=== PATIENT | male | born 1975 | race Caucasian/White ===

== ENCOUNTER 2019-10-28 10:10 | Emergency (ER) | payer BC ==
[~2019-10-28] VITALS: Ht 182.8 cm; Wt 63.5 kg
[2019-10-28] MEDS ORDERED: SUBOXONE 8 MG-1 EACH SL (10:13)
[2019-10-28 10:36] LABS: BASO # 0.1 10*3/uL (0.0-0.1); BASO % 0.5 % (0.0-1.0); EOS # 0.1 10*3/uL (0.0-0.4); EOS % 0.9 % (1.0-4.0); HEMOGLOBIN 16.7 g/dl (14.0-18.0); LYMPH % 18.1 % (27.0-41.0); MEAN CELL VOLUME 106.9 fl (80.0-94.0); MEAN CORPUSCULAR HGB 37.2 pg (27.0-31.0); MEAN CORPUSCULAR HGB CONC 34.8 g/dl (33.0-37.0); MEAN PLATELET VOLUME 8.9 fl (9.6-12.3); MONO # 0.9 10*3/uL (0.1-1.0); MONO % 7.6 % (3.0-9.0); NEUT # 8.1 10*3/uL (2.3-7.9); NEUT % 72.5 % (47.0-73.0); PLATELET COUNT AUTOMATED 308 10*3/uL (130-400); RED BLOOD COUNT 4.49 10*6/uL (4.50-5.90); WHITE BLOOD COUNT 11.2 10*3/uL (4.8-10.8)
[2019-10-28 10:46] LABS: ACT PARTIAL THROMBO TIME 24.8 SECONDS (20.0-32.1); INTERNATIONAL NORM RATIO 0.9 (2.0-3.5)
[2019-10-28 10:52] LABS: ALBUMIN 4.2 gm/dl (3.1-4.5); ALKALINE PHOSPHATASE 124 U/L (45-117); BUN 5 mg/dl (7-24); CHLORIDE 108 mmol/L (98-107); CPK 53 U/L (39-308); CREATININE 0.83 mg/dL (0.70-1.30); POTASSIUM 4.2 mmol/L (3.5-5.1); SGOT/AST 45 IU/L (3-35); SGPT/ALT 63 U/L (12-78); SODIUM 142 mmol/L (136-145); TOTAL PROTEIN 8.1 gm/dL (6.4-8.2)
[2019-10-28 10:54] LABS: TROPONIN I < 0.015 ng/ml (<0.045)
== END 2019-10-28 14:28 | disposition home or self-care (01) ==
LOC: ED 10:10
PROVIDERS: Emergency Medicine
DX: T40.601A Poisoning by unspecified narcotics, accidental (unintentional), initial encounter (principal); R06.02 Shortness of breath; Z04.1 Encounter for examination and observation following transport accident; G89.29 Other chronic pain; F17.210 Nicotine dependence, cigarettes, uncomplicated; V47.5XXA Car driver injured in collision with fixed or stationary object in traffic accident, initial encounter; Y93.I9 Activity, other involving external motion; Y92.488 Other paved roadways as the place of occurrence of the external cause; Y99.8 Other external cause status

== ENCOUNTER → 2023-03-31 | Outpatient (CLI) | payer OTHER ==
[~2023-03-31] MED LIST: SUBOXONE 8 MG-1 EACH SL
[2023-03-31 13:34] LABS: BASO % 0.6 % (0.0-1.0); EOS # 0.1 10*3/uL (0.0-0.4); EOS % 1.5 % (1.0-4.0); HEMATOCRIT 48.9 % (42.0-52.0); LYMPH # 2.3 10*3/uL (1.3-4.4); LYMPH % 35.1 % (27.0-41.0); MEAN CELL VOLUME 106.1 fl (80.0-94.0); MEAN CORPUSCULAR HGB 36.9 pg (27.0-31.0); MEAN CORPUSCULAR HGB CONC 34.8 g/dl (33.0-37.0); MEAN PLATELET VOLUME 9.3 fl (9.6-12.3); MONO # 0.9 10*3/uL (0.1-1.0); NEUT # 3.3 10*3/uL (2.3-7.9); NEUT % 49.6 % (47.0-73.0); PLATELET COUNT AUTOMATED 258 10*3/uL (130-400); RED BLOOD COUNT 4.61 10*6/uL (4.50-5.90); RED CELL DISTRI WIDTH 13.9 % (0-14.5); WHITE BLOOD COUNT 6.6 10*3/uL (4.8-10.8)
[2023-03-31 14:26] LABS: ALKALINE PHOSPHATASE 89 U/L (46-116); BUN 6 mg/dl (9-23); CHLORIDE 105 mmol/L (98-107); POTASSIUM 4.2 mmol/L (3.4-5.1); SGPT/ALT 17 U/L (10-49); TOTAL PROTEIN 7.3 gm/dL (6.0-8.0)
== END | disposition home or self-care (01) ==
LOC: LAB 12:43
PROVIDERS: Physical Therapist; ATTEND Family Medicine
DX: M51.26 Other intervertebral disc displacement, lumbar region (principal); M48.061 Spinal stenosis, lumbar region without neurogenic claudication; F10.10 Alcohol abuse, uncomplicated; R53.83 Other fatigue; R20.0 Anesthesia of skin; R73.9 Hyperglycemia, unspecified

== ENCOUNTER → 2024-02-12 | Outpatient (CLI) | payer OTHER ==
[2024-02-12 15:55] LABS: HEMATOCRIT 37.1 % (42.0-52.0); MEAN CELL VOLUME 119.3 fl (80.0-94.0); MEAN CORPUSCULAR HGB 41.5 pg (27.0-31.0); MEAN CORPUSCULAR HGB CONC 34.8 g/dl (33.0-37.0); MEAN PLATELET VOLUME 9.8 fl (9.6-12.3); NUCLEATED RED BLOOD CELL 0.1 10*3/uL (0.0-0.0); NUCLEATED RED BLOOD CELL 0.9 % (0.0-0.0); PLATELET COUNT AUTOMATED 265 10*3/uL (130-400); RED BLOOD COUNT 3.11 10*6/uL (4.50-5.90); RED CELL DISTRI WIDTH 17.7 % (0-14.5); WHITE BLOOD COUNT 6.7 10*3/uL (4.8-10.8)
[2024-02-12 15:56] LABS: MANUAL DIFF REFLEX YES
[2024-02-12 16:19] LABS: ATYPICAL LYMPHS 1 % (0-0); BASOPHILS 1 % (0-1); PLATELET SUFFICIENCY NORMAL (NORMAL); TARGET CELLS FEW; TOTAL CELLS COUNTED 100 #CELLS
[2024-02-12 16:20] LABS: SPHEROCYTES FEW; STOMATOCYTE FEW
[2024-02-12 16:26] LABS: ALKALINE PHOSPHATASE 404 U/L (46-116); BUN 7 mg/dl (9-23); CHLORIDE 96 mmol/L (98-107); SGPT/ALT 95 U/L (5-49); TOTAL PROTEIN 7.3 gm/dL (6.0-8.0)
== END ==
LOC: CARD 15:00
PROVIDERS: ATTEND Student in an Organized Health Care Education/Training Program
DX: F10.10 Alcohol abuse, uncomplicated (principal); R00.0 Tachycardia, unspecified

== ENCOUNTER → 2024-03-04 | Outpatient (CLI) | payer OTHER | END | disposition home or self-care (01) | LOC: US 08:30 | PROVIDERS: ATTEND Family Medicine | DX: K76.0 Fatty (change of) liver, not elsewhere classified (principal); F10.10 Alcohol abuse, uncomplicated ==

== ENCOUNTER 2024-04-09 14:00 | Emergency (ER) | payer OTHER ==
[~2024-04-09] VITALS: Ht 182.8 cm; Wt 50.8 kg
[2024-04-09] MEDS ORDERED: POTASSIUM CHLORIDE 20 MEQ TAB PO ONE (14:40)
[2024-04-09] MEDS ORDERED: METHADONE HYDROC5 MG PO (14:45)
[2024-04-09] MEDS ORDERED: B-121000 MC1 PO (14:46)
[2024-04-09] MEDS ORDERED: POTASSIUM40 MEQ/15 PO (14:47)
[2024-04-09] MEDS ORDERED: PHARMASSURE FO0.4 MG PO (14:47)
[2024-04-09 15:04] LABS: HEMATOCRIT 30.7 % (42.0-52.0); MEAN CELL VOLUME 125.3 fl (80.0-94.0); MEAN CORPUSCULAR HGB 44.5 pg (27.0-31.0); MEAN CORPUSCULAR HGB CONC 35.5 g/dl (33.0-37.0); MEAN PLATELET VOLUME 10.4 fl (9.6-12.3); NUCLEATED RED BLOOD CELL 0.2 10*3/uL (0.0-0.0); NUCLEATED RED BLOOD CELL 1.6 % (0.0-0.0); PLATELET COUNT AUTOMATED 273 10*3/uL (130-400); RED BLOOD COUNT 2.45 10*6/uL (4.50-5.90); RED CELL DISTRI WIDTH 16.7 % (0-14.5); WHITE BLOOD COUNT 12.2 10*3/uL (4.8-10.8)
[2024-04-09 15:05] LABS: MANUAL DIFF REFLEX YES
[2024-04-09 15:27] LABS: ALKALINE PHOSPHATASE 818 U/L (46-116); BUN 9 mg/dl (9-23); CHLORIDE 97 mmol/L (98-107); POTASSIUM 2.7 mmol/L (3.4-5.1); SGPT/ALT 87 U/L (5-49); TOTAL PROTEIN 6.3 gm/dL (6.0-8.0)
[2024-04-09 15:32] LABS: ATYPICAL LYMPHS 1 % (0-0); BASOPHILS 1 % (0-1); PLATELET SUFFICIENCY NORMAL (NORMAL); TOTAL CELLS COUNTED 100 #CELLS
[2024-04-09 15:33] LABS: TARGET CELLS FEW
[2024-04-09 15:34] LABS: POLYCHROMASIA SLIGHT
[2024-04-09] MEDS ORDERED: MEGACE40 MG PO (16:08)
== END 2024-04-09 16:02 | disposition home or self-care (01) ==
LOC: ED 14:00
PROVIDERS: Emergency Medicine
DX: E87.6 Hypokalemia (principal); R53.1 Weakness; F10.10 Alcohol abuse, uncomplicated; F17.290 Nicotine dependence, other tobacco product, uncomplicated; Z98.890 Other specified postprocedural states